=== PATIENT | female | born 1975 | race Asian ===

== ENCOUNTER 2018-05-03 10:42 | Inpatient (IN) | payer OTHER ==
[~2018-05-03] VITALS: Ht 152.4 cm; Wt 62.3 kg
[~2018-05-03 10:42] MED LIST: FOLIC ACID1 MG PO; GABAPENTIN100 M2 PO; LAC PO; LEVAQUIN750 MG PO; NOR5 PO; RENA-VITE1 TAB PO; ROBCF PO; XAN5 PO
[2018-05-03 10:53] VITALS: Ht 152.4 cm; Wt 62.3 kg
[2018-05-03 11:33] LABS: UA SPECIFIC GRAVITY 1.025 (1.005-1.035); microscopic required? YES; urine erythrocyte 2+ (NEGATIVE)
[2018-05-03 11:37] LABS: BASOPHIL % 0.3 % (0-2); PLATELET COUNT 281 x10^3mcL (130-400)
[2018-05-03 11:53] LABS: ALBUMIN 3.5 g/dL (3.4-5.0); BILIRUBIN TOTAL 0.5 mg/dL (0.20-1.00); CALCIUM 9.5 mg/dL (8.5-10.1); CARBON DIOXIDE 25.9 mmol/L (21-32); TOTAL PROTEIN, SERUM 8.1 g/dL (6.4-8.2)
[2018-05-03 12:17] LABS: CREATININE SERUM 17.9 mg/dL (0.6-1.0); POTASSIUM SERUM 2.6 mmol/L (3.5-5.1)
[2018-05-03 16:10] VITALS: BP 120/81
[2018-05-03 16:34] LABS: MAGNESIUM 2.5 mg/dL (1.8-2.4)
[2018-05-03 16:36] LABS: CHOLESTEROL/HDL RATIO 2.2
[2018-05-03 16:41] LABS: T3 TOTAL 0.79 ng/mL
[2018-05-03 16:44] LABS: FREE T4 0.95 ng/dL (0.76-1.46); FREE THYROXINE INDEX 2.1 ug/dL (1.4-4.5); T4(THYROXINE) 6.1 ug/dL (4.7-13.3)
[2018-05-03 17:37] LABS: PHOSPHOROUS 13.1 mg/dL (2.5-4.9)
[2018-05-03 20:22] VITALS: BP 116/76
[2018-05-04 05:31] LABS: BASOPHIL % 0.6 % (0-2); PLATELET COUNT 214 x10^3mcL (130-400)
[2018-05-04 05:40] VITALS: BP 103/63
[2018-05-04 05:56] LABS: CALCIUM 8.9 mg/dL (8.5-10.1); CARBON DIOXIDE 20.1 mmol/L (21-32); MAGNESIUM 2.3 mg/dL (1.8-2.4); POTASSIUM SERUM 3.2 mmol/L (3.5-5.1)
[2018-05-04 06:00] LABS: CREATININE SERUM 19.2 mg/dL (0.6-1.0)
[2018-05-04 07:19] LABS: RED CELL DISTRIBUTION WIDTH 15.8 % (11.5-14.5)
[2018-05-04 08:33] VITALS: BP 116/78
[2018-05-04 13:27] VITALS: BP 126/77
[2018-05-04 17:21] VITALS: BP 118/75
[2018-05-04 20:13] VITALS: BP 117/80
[2018-05-05 05:05] VITALS: BP 116/63
[2018-05-05 07:06] LABS: CALCIUM 8.9 mg/dL (8.5-10.1); CARBON DIOXIDE 20.5 mmol/L (21-32); POTASSIUM SERUM 3.4 mmol/L (3.5-5.1)
[2018-05-05 07:11] LABS: BASOPHIL % 0.7 % (0-2); PLATELET COUNT 238 x10^3mcL (130-400)
[2018-05-05 07:18] LABS: CREATININE SERUM 18.9 mg/dL (0.6-1.0)
[2018-05-05 07:27] LABS: RED CELL DISTRIBUTION WIDTH 14.9 % (11.5-14.5)
[2018-05-05 07:48] LABS: PHOSPHOROUS 10.5 mg/dL (2.5-4.9)
[2018-05-05 08:54] VITALS: BP 131/88
[2018-05-05] MEDS ORDERED: FOSRENOL1000 MG PO (13:03)
[2018-05-05] MEDS ORDERED: RENVELA800 M1 PO (13:04)
[2018-05-05] MEDS ORDERED: APAP/HYDROCODON1 T13 PO (13:31)
[2018-05-06 10:12] LABS: APPEARANCE FLUID CLEAR; COLOR FLUID COLORLESS; RBC FLUID 6 /cumm; SOURCE FLUID PARCENTESIS; WBC FLUID 31 /cumm
[2018-05-06 10:13] LABS: LYMPHOCYTE FLUID 13 %; MONOCYTE FLUID 28 %
== END 2018-05-05 17:21 | disposition home or self-care (01) | DRG 760 ==
LOC: ED 10:42 → DU 14:43 → MU 05-04 21:36
PROVIDERS: Internal Medicine; Internal Medicine Nephrology; Specialist
DX: N83.201 Unspecified ovarian cyst, right side (principal); N18.6 End stage renal disease; N17.0 Acute kidney failure with tubular necrosis; I12.0 Hypertensive chronic kidney disease with stage 5 chronic kidney disease or end stage renal disease; D39.0 Neoplasm of uncertain behavior of uterus; E87.6 Hypokalemia; E83.39 Other disorders of phosphorus metabolism; Z99.2 Dependence on renal dialysis; E83.41 Hypermagnesemia
CPT/HCPCS: 84439; J2270; J2765; J3010; J3480; J7030; Q0092; Q0163

== ENCOUNTER 2019-03-24 18:24 | Emergency (ER) | payer OTHER ==
[~2019-03-24] VITALS: Ht 160 cm; Wt 70.3 kg
[~2019-03-24 18:24] MED LIST changes: +APAP/HYDROCODON1 T13 PO; +FOSRENOL1000 MG PO; +RENVELA800 M1 PO
[2019-03-24 18:29] VITALS: Ht 160 cm; Wt 70.3 kg
[2019-03-24 18:52] LABS: BASOPHIL % 0.4 % (0-2); PLATELET COUNT 271 x10^3mcL (130-400); RED CELL DISTRIBUTION WIDTH 13.6 % (11.5-14.5)
[2019-03-24 19:03] LABS: BILIRUBIN TOTAL 0.3 mg/dL (0.20-1.00); CALCIUM 7.5 mg/dL (8.5-10.1); CARBON DIOXIDE 30.3 mmol/L (21-32); POTASSIUM SERUM 3.3 mmol/L (3.5-5.1); TOTAL PROTEIN, SERUM 6.5 g/dL (6.4-8.2)
[2019-03-24 19:04] LABS: ALBUMIN 2.6 g/dL (3.4-5.0)
[2019-03-24 19:07] LABS: CREATININE SERUM 12.9 mg/dL (0.6-1.0)
[2019-03-24 22:44] VITALS: BP 113/74
== END 2019-03-24 22:30 | disposition home or self-care (01) ==
LOC: ED 18:24
DX: K85.90 Acute pancreatitis without necrosis or infection, unspecified (principal); T80.90XA Unspecified complication following infusion and therapeutic injection, initial encounter; I12.0 Hypertensive chronic kidney disease with stage 5 chronic kidney disease or end stage renal disease; N18.6 End stage renal disease; Z99.2 Dependence on renal dialysis; Z88.5 Allergy status to narcotic agent; Z88.8 Allergy status to other drugs, medicaments and biological substances; Z88.1 Allergy status to other antibiotic agents; Z98.890 Other specified postprocedural states
CPT/HCPCS: 36415; Q0162

== ENCOUNTER 2019-04-24 12:37 | Inpatient (IN) | payer OTHER ==
[~2019-04-24] VITALS: Ht 154.9 cm; Wt 75.3 kg
[2019-04-24 12:40] VITALS: Ht 154.9 cm; Wt 75.3 kg
--- NOTE | 2019-04-24 13:34 | NUR ---
PT STARTED WITH N/V/D THIS AM 0300 WITH MULTIPLE EPISODES. ABD SOFT AND ROUND AND TENDER TO PALP WITHOUT PALP MASSES PRESENT. PAIN 10/10. NO VOMITING NOTED UPON ARRIVAL. PT IS ALERT AND ORIENTED WITH VSS AND NO DISTRESS NOTED. PT IS ON PERITONEAL DIALYSIS AND HAS OLD ACCESS AREAS ON BILATERAL UPPER ARMS. ATTEMPTED IV SL START WITHOUT SUCCESS X2. WILL NOTIFY CHARGE NURSE. PT IS AWAITING MD SANTIAGO
[2019-04-24 14:48] LABS: BASOPHIL % 0.7 % (0-2); PLATELET COUNT 246 x10^3mcL (130-400); RED CELL DISTRIBUTION WIDTH 13.4 % (11.5-14.5)
[2019-04-24 14:56] LABS: BILIRUBIN TOTAL 0.5 mg/dL (0.20-1.00); CALCIUM 7.6 mg/dL (8.5-10.1); CARBON DIOXIDE 26.1 mmol/L (21-32); POTASSIUM SERUM 3.7 mmol/L (3.5-5.1); TOTAL PROTEIN, SERUM 7.3 g/dL (6.4-8.2)
--- NOTE | 2019-04-24 14:57 | NUR ---
PT BACK FROM XRAY.
[2019-04-24 14:58] LABS: ALBUMIN 2.7 g/dL (3.4-5.0); CREATININE SERUM 12.2 mg/dL (0.6-1.0)
--- NOTE | 2019-04-24 15:31 | NUR ---
PT UNABLE TO PROVIDE URINE AT THIS TIME, STATES SHE PRODUCES VERY LITTLE, ONLY IN AM AND AT NOC.
[2019-04-24] MEDS ORDERED: TOPROL XL25 MG PO (16:04)
--- NOTE | 2019-04-24 16:04 | NUR ---
PT TRANSFRERED TO FLOOR WITH TOMEKA LISA, PT STABLE FOR TRANSFER. VSS. [facility] WITH PT.
[2019-04-24] MEDS ORDERED: HYDRALAZINE HCL25 MG PO (16:05)
--- NOTE | 2019-04-24 16:20 | NUR ---
RECEIVED PT FROM ED VIA GUERNEY, BEDSIDE REPORT RECEIVED FROM TRANSPORTING ER NURSE. PT CAME IN DUE TO ABDOMINAL PAIN AND DIARRHEA X1 DAY. AAOX4. DENIES HEADACHE/DIZZINESS. NO SOB NOTED, LUNG SOUNDS CTA. DENIES CHEST PAIN/PRESSURE. C/O 10/10 ACHING ABDOMINAL PAIN AND NAUSEA. STATED THAT SHE HAD ABOUT X10 EPISODES OF DIARRHEA AND X3 EPISODES OF VOMITING TODAY. OLIGURIC, HAS PERITONEAL DIALYSIS CATHETER ON THE ABDOMEN. W/ OLD AV SHUNTS ON BUE, NON-FUNCTIONING. INSTRUCTED PT THAT URINE AND STOOL SAMPLES NEED TO BE COLLECTED, PT VERBALIZES UNDERSTANDING. IV SITE ON THE RFA GAUGE 22 IS PATENT AND INTACT. SIDE RAILS UPX2. CALL LIGHT ON REACH. WILL CONT TO MONITOR.
--- NOTE | 2019-04-24 16:30 | NUR ---
RYLEY IS PAGED TO MADE AWARE THAT PT IS C/O 06/11 ACHING ABDOMINAL PAIN AND NAUSEA. PT STATED THAT NORCO DOES NOT WORK FOR HER, WAITING FOR CALLBACK.
[2019-04-24 16:41] VITALS: BP 156/100
--- NOTE | 2019-04-24 17:03 | NUR ---
DR. THAKKAR AT BEDSIDE AND WAS MADE AWARE OF PT'S C/O 10/[address] THAKKAR ASSESSED THE PT AND INFORMED OF THE PLAN OF CARE. PT VERBALIZES UNDERSTANDING
--- NOTE | 2019-04-24 17:07 | NUR ---
LIRA FROM DIALYSIS MADE AWARE THAT PT HAS AN ORDER FOR PERITONEAL DIALYSIS TODAY, PER LIRA SHE WILL BE IN THE [facility]
--- NOTE | 2019-04-24 17:27 | NUR ---
MASOOD HEDRICK MADE AWARE THAT PT C/O 10/10 ACHING ABDOMINAL PAIN, WAITING FOR ORDERS.
--- NOTE | 2019-04-24 17:48 | NUR ---
DR. THAKKAR IS PAGED REGARDING ORDERED LANSOPRAZOLE PENDING PHARMACY VERIFICATION AT THIS TIME
--- NOTE | 2019-04-24 19:05 | NUR ---
CARE ASSUMED FROM OUTGOING RN. PT RESTING COMFORTABLY IN BED. FAMILY AT BEDSIDE. NO ACUTE DISTRESS NOTED. EVEN AND UNLABORED RESPIRATIONS ON RA. MEDSURG PT. IVL INTACT. C/O HEADACHE AND ABD PAIN, DAY SHIFT RN WILL MEDICATE WITH NORCO. PERITONEAL DIALYSIS PORT, CDI, SCHEDULED FOR PD TONIGHT, PT AWARE. BED IN LOWEST POSITION. SIDE RAILS UPX2. CALL LIGHT WITHIN REACH. WILL CONTINUE TO MONITOR.
--- NOTE | 2019-04-24 19:09 | NUR ---
BEDSIDE REPORT GIVEN TO MARU FOR CONTINUITY OF CARE
[2019-04-24 20:00] LABS: microscopic required? YES; urine erythrocyte TRACE (NEGATIVE)
[2019-04-24 20:19] LABS: AMPHETAMINE QUAL UR NONE DETECTED (See below)
[2019-04-24 20:55] VITALS: BP 106/65
--- NOTE | 2019-04-24 22:10 | NUR ---
OVERHEAD IRRIGATOR AT BEDSIDE TO PERFORM PERITONEAL DIALYSIS. MOVED PT TO FROM 234B TO 234A. WILL CONTINUE TO MONITOR.
--- NOTE | 2019-04-24 23:00 | NUR ---
PERITONEAL DIALYSIS STARTED. PERITONEAL DRESSING CHANGED BY DEMAND MANAGER, TALAT. PT C/O OF ABD PAIN MEDICATED PER EMAR. C/O ITCHINESS, WILL NOTIFY DRMaxwell WILL CONTINUE TO MONITOR.
--- NOTE | 2019-04-25 00:17 | NUR ---
PT RESTING COMFORTABLY IN BED. PERITONEAL DIALYSIS ONGOING. C/O ITCHINESS MEDICATED PER EMAR. IV INFILTRATED TO RFA, DC'ED, CATHETER INTACT, PRESSURE APPLIED, NO BLEEDING NOTED. INSERTED IV TO LFA, GOOD BLOOD RETURN FLUSHING WELL, SALINE LOCKED. BED IN LOWEST POSITION. SIDE RAILS UPX2. CALL LIGHT WITHIN REACH. WILL CONTINUE TO MONITOR.
[2019-04-25 05:11] VITALS: BP 97/64
--- NOTE | 2019-04-25 06:51 | NUR ---
PT SLEPT COMFORTABLY IN INTERVALS THROUGHOUT THE SHIFT. ALL NEEDS TENDED TO AND MET. ALL SCHEDULED MEDICATIONS GIVEN. PERITONEAL DIALYSIS ONGOING, DRESSING CDI. C/O HEADACHE, ABD PAIN AND ITCHINESS MEDICATED PER EMAR. BED IN LOWEST POSITION. SIDE RAILS UPX2. CALL LIGHT WITHIN REACH. WILL ENDORSE TO ONCOMING SHIFT.
[2019-04-25 06:59] LABS: BASOPHIL % 0.4 % (0-2); PLATELET COUNT 228 x10^3mcL (130-400); RED CELL DISTRIBUTION WIDTH 13.3 % (11.5-14.5)
[2019-04-25 07:02] LABS: CALCIUM 7.2 mg/dL (8.5-10.1); CARBON DIOXIDE 25.6 mmol/L (21-32); POTASSIUM SERUM 3.8 mmol/L (3.5-5.1)
[2019-04-25 07:07] LABS: CREATININE SERUM 12.3 mg/dL (0.6-1.0)
--- NOTE | 2019-04-25 07:30 | NUR ---
PT ENDORSE TO ME THIS MORNING, SITTING UP IN BED. AA/O X4. BREATHING EVEN AND UNLABORED ON RA, NO ACUTE RESP DISTRESS OR SOB NOTED. MEDSURG/ DENIES ANY CP OR PRESSURE. JUST COMPLETED PERITONEAL DIALYSIS AT BEDSIDE. BOWEL SOUNDS ACTIVE IN ALL FOUR QUADS, PER PT LAST BM 04/24 LOOSE NOTED. OLIGURIC. MEDICATED PER EMAR FOR ABD PAIN. IV TO THE LFA INTACT AND PATETN, NO REDNESS OR SWELLING NOTED. CALL LIGHT IN REACH. BED IN LOW POSITION. WILL CONTINUE PLAN OF CARE.
[2019-04-25 08:46] VITALS: BP 108/57
--- NOTE | 2019-04-25 08:50 | NUR ---
PT C/O OF ITCHING, MEDICATED PER EMAR. FISHING ROD MECHANIC MADE AWARE.
--- NOTE | 2019-04-25 11:18 | NUR ---
PT CONTINUES TO C/O OF ABD PAIN, MEDICATED PER EMAR FOR 10/10 PAIN. WILL CONTINUE TO MONITOR.
--- NOTE | 2019-04-25 14:33 | NUR ---
PT C/O OF ITCHINESS TO BODY, MEDICATED PER EMAR. WILL CONTINUE TO MONITOR.
[2019-04-25 16:07] VITALS: BP 100/62
--- NOTE | 2019-04-25 19:20 | NUR ---
CARE ASSUMED FROM OUTGOING RN. PT RESTING COMFORTABLY IN BED. NO ACUTE DISTRESS NOTED. PERITONEAL DIALYSIS ONGOING. PERITONEAL FLUID NEEDED FOR CULTURE, PT AWARE AND WILL NOTIFY WHEN FLUID IS DRAINING. EVEN AND UNLABORED RESPIRATIONS ON RA. MEDSURG PT. IVL INTACT. C/O ABD PAIN, WILL MEDICATE PRN PER EMAR. BED IN LOWEST POSITION. SIDE RAILS UPX2. CALL LIGHT WITHIN REACH. WILL CONTINUE TO MONITOR.
--- NOTE | 2019-04-25 19:32 | NUR ---
NO ACUTE CHANGES AT THIS TIME. NO ACUTE RESP DISTRESS OR SOB NOTED/ PT CURRENTLY REC PERITONEAL DIALYSIS. MEDICATED PER EMAR FOR ABD PAIN. WILL ENDORSE TO INCOMING RN.
[2019-04-25 19:49] VITALS: BP 104/72
--- NOTE | 2019-04-26 00:10 | NUR ---
PO ANTIBIOTIC GIVEN PER EMAR. C/O 04/11 ABD PAIN MEDICATED PER EMAR. PT RESTING COMFORTABLY IN BED. IV PATENT AND INTACT. BED IN LOWEST POSITION. SIDE RAILS UPX2. CALL LIGHT WITHIN REACH. WILL REASSESS FOR PAIN AND CONTINUE TO MONITOR.
[2019-04-26 04:15] VITALS: BP 95/53
[2019-04-26 06:34] LABS: BASOPHIL % 0.4 % (0-2); PLATELET COUNT 224 x10^3mcL (130-400); RED CELL DISTRIBUTION WIDTH 13.1 % (11.5-14.5)
[2019-04-26 06:59] LABS: CALCIUM 7.2 mg/dL (8.5-10.1); CARBON DIOXIDE 26.9 mmol/L (21-32)
[2019-04-26 07:04] LABS: CREATININE SERUM 12.6 mg/dL (0.6-1.0)
--- NOTE | 2019-04-26 07:04 | NUR ---
PT SLEPT COMFORTABLY IN INTERVALS THROUGHOUT THE SHIFT. ALL NEEDS TENDED TO AND MET. ALL SCHEDULED MEDICATIONS GIVEN. PERITONEAL DIALYSIS COMPLETED THROUGHOUT THE SHIFT, PERITONEAL FLUID SENT TO LAB FOR C/S. C/O ABD PAIN AND ITCHINESS MEDICATED PER EMAR. BED IN LOWEST POSITION. SIDE RAILS UPX2. CALL LIGHT WITHIN REACH. WILL ENDORSE TO ONCOMING SHIFT.
--- NOTE | 2019-04-26 07:29 | NUR ---
PT ENDORSE TO ME THIS MORNING,SITTING UP IN BED RESTING. AA/O X4/ BREATHING EVEN AND UNLABORED ON RA, NO ACUTE RESP DISTRESS OR SOB NOTED .MEDSURG. DENIES ANY CP OR PRESSURE. BOWEL SOUNDS ACTIVE IN ALL FOUR QUADS. DENIES ANY ABD PAIN OR DISCOMFORT AT THIS TIME, MEDICATED PER EMAR. LAST PERITONIAL DIALYSIS 04/25 PM. IV TO THE LFA INTACT AND PATENT/ HEPLOCKED/ NO REDNESS OR SWELLING NOTED. WILL CONTINUE TO MONITOR.
[2019-04-26 08:35] LABS: MAGNESIUM 2.2 mg/dL (1.8-2.4); PHOSPHOROUS 6.2 mg/dL (2.5-4.9)
[2019-04-26 08:38] VITALS: BP 103/62
--- NOTE | 2019-04-26 10:28 | NUR ---
PT C/O OF ITCHINESS MEDICATED PER EMAR. WILL CONTINE TO MONITOR.
[2019-04-26 17:04] VITALS: BP 101/62
--- NOTE | 2019-04-26 19:05 | NUR ---
CARE ASSUMED FROM OUTGOING RN. PT RESTING COMFORTABLY IN BED. NO ACUTE DISTRESS NOTED. EVEN AND UNLABORED RESPIRATIONS ON RA. MEDSURG PT. IVL INTACT. PERITONEAL DIALYSIS SCHEDULED FOR TONIGHT. BED IN LOWEST POSITION. SIDE RAILS UPX2. CALL LIGHT WITHIN REACH. WILL CONTINUE TO MONITOR.
[2019-04-26 19:51] VITALS: BP 112/61
--- NOTE | 2019-04-26 20:34 | NUR ---
REMOTE ADVISOR AT BEDSIDE TO START PERITONEAL DIALYSIS. WILL CONTINUE TO MONITOR.
--- NOTE | 2019-04-27 00:01 | NUR ---
PT C/O OF ITCHINESS DUE TO PERITONEAL DIALYSIS ONGOING, MEDICATED PER EMAR. PO ANTIBIOTICS GIVEN. PT TOLERATED WELL. RESTING COMFORTABLY IN BED. EVEN AND UNLABORED RESPRIATIONS ON RA. BED IN LOWEST POSITION. SIDE RAILS UPX2. CALL LIGHT WITHIN REACH. WILL CONTINUE TO MONITOR.
[2019-04-27 06:09] LABS: BASOPHIL % 0.4 % (0-2); PLATELET COUNT 238 x10^3mcL (130-400)
[2019-04-27 06:28] LABS: CALCIUM 7.7 mg/dL (8.5-10.1); CARBON DIOXIDE 23.3 mmol/L (21-32); POTASSIUM SERUM 3.6 mmol/L (3.5-5.1)
--- NOTE | 2019-04-27 06:46 | NUR ---
PT SLEPT COMFORTABLY IN INTERVALS THROUGHOUT THE SHIFT. ALL NEEDS TENDED TO AND MET. ALL SCHEDULED MEDICATIONS GIVEN. C/O PAIN AND ITCHINESS MEDICATED PER EMAR. PERITONEAL DIALYSIS COMPLETED LAST NIGHT. IVL PATENT AND INTACT. BED IN LOWEST POSITION. SIDE RAILS UPX2. CALL LIGHT WITHIN REACH. WILL ENDORSE TO ONCOMING SHIFT.
--- NOTE | 2019-04-27 06:50 | NUR ---
RECEIVED CRITICAL LAB RESULTS: BUN/CREAT: 62.0/13.0. PAGED AND PAGEGATED WILL ENDORSE TO ONCOMING SHIFT.
[2019-04-27 08:33] VITALS: BP 108/73
--- NOTE | 2019-04-27 10:45 | NUR ---
PATIENT COMPLAINED OF SUDDEN ONSET CHEST PAIN (PRESSURE "LIKE SOMETHING IS SITTING ON TOP OF MY CHEST") 8/10 RADIATING FROM NECK TO CHEST TO BACK. VITALS TAKEN, NORMAL RANGE. DIAMOND CUTTER BRYAN MADE AWARE, STAT EKG AND TROP ORDERED AND TRANSFERRED TO TELE. TELE 29 PLACED ON PATIENT, READING SR. EKG AND TROP DRAW DONE. MORPHINE GIVEN. WILL CONTINUE TO MONITOR.
--- NOTE | 2019-04-27 11:25 | NUR ---
PATIENT C/O PERSISTENT CHEST PAIN 8/10, NITRO SL GIVEN. WILL CONT TO MONITOR.
[2019-04-27 11:33] VITALS: BP 116/80
--- NOTE | 2019-04-27 13:45 | NUR ---
PATIENT STATES NITRO HELPED FOR ALITTLE BIT BUT CHEST PAIN BACK AT 8/10 AND PERSISTENT. BRYAN MADE AWARE OF EKG RESULT SR AND TROP 0.022, PER HEAD ANIMAL TRAINER OKAY TO GIVE NITRO SL AGAIN, GIVEN. PATIENT C/O HEADACHE FROM NITRO, NORCO OFFERED AND GIVEN. PATIENT ALSO REQUESTED FOR BENEDRYL, GIVEN. WILL CONT TO MONITOR.
[2019-04-27 16:46] VITALS: BP 105/74
--- NOTE | 2019-04-27 19:24 | NUR ---
BEDSIDE REPORT GIVEN TO [facility] NURSE ANUP TO CONTINUE CARE. PERITONIAL DIALYSIS ORDER IN PLACE AND VERIFIED WITH LIRA TO INIITATE TONIGHT. PATIENT STATES CHEST PAIN PRESENT, CONTANT BUT INTENSITY VARIES THROUGHOUT DAY. PAIN MEDS NOT DUE AT THIS TIME, PATIENT VERBALIZED UNDERSTANDING. PATIENT W/ NO ACUTE DISTRESS AT THIS TIME AND NO OTHER SIGNFICANT CHANGE IN CONDITION. CALL LIGHT WITHIN REACH.
--- NOTE | 2019-04-27 19:50 | NUR ---
PT. AWAKE, ALERT, ORIENTED X4. DENIES HEADACHE OR DIZZINESS. BREATH SOUNDS CLEAR THROUGHOUT LUNG WALKER, RESP. EVEN, UNLABORED. NO SOB NOTED. PT. ON RA. ABD. SOFT AND ROUND, BOWEL SOUNDS ACTIVE. PT. C/O ABD. PAIN. DENIES NAUSEA. PERITONEAL PORT TO LT. ABD W/ DRSG CDI. PEDAL PULSES STRONG TO BLE. NO EDEMA NOTED. IV HEPLOCKED, FLUSHING WELL, SITE INTACT. CALL LIGHT WITHIN REACH.
[2019-04-27 20:40] VITALS: BP 109/69
--- NOTE | 2019-04-27 20:45 | NUR ---
PT. C/O ABD. PAIN, PRN NORCO GIVEN ORDERED. WILL MONITOR. PERITONEAL DIALYSIS INITIATED BY TOMEKA LIRA. CALL LIGHT WITHIN REACH.
--- NOTE | 2019-04-27 23:58 | NUR ---
PT. C/O ABD. PAIN, 05/12. PRN MORPHINE GIVEN ORDERED. WILL MONITOR.
--- NOTE | 2019-04-28 03:01 | NUR ---
PT. MOSTLY AWAKE, STATED THAT SHE NEVER SLEEPS. C/O ITCHING HER PERITONEAL DIALYSIS CONTINUES. PRN BENADRYL PO, GIVEN ORDERED. NO C/O PAIN AT THIS TIME. WILL CONTINUE TO MONITOR.
[2019-04-28 05:06] VITALS: BP 100/64
--- NOTE | 2019-04-28 06:32 | NUR ---
PT. C/O ABD. GLENN, PAIN LEVEL 9/10. PRN MORPHINE GIVEN ORDERED. IV ANTIBIOTIC INFUSING. PERITONEAL DIALYSIS ALMOST COMPLETED. CALL LIGHT WITHIN REACH. WILL ENDORSE PT. CARE TO INCOMING NURSE
[2019-04-28 06:38] LABS: BASOPHIL % 0.3 % (0-2); PLATELET COUNT 222 x10^3mcL (130-400)
[2019-04-28 06:40] LABS: CALCIUM 7.8 mg/dL (8.5-10.1); CARBON DIOXIDE 22.7 mmol/L (21-32); POTASSIUM SERUM 3.4 mmol/L (3.5-5.1)
[2019-04-28 06:45] LABS: CREATININE SERUM 13.3 mg/dL (0.6-1.0)
--- NOTE | 2019-04-28 07:10 | NUR ---
RECEIVED REPORT FROM ANUP RN, PT IN BED W/ NO ACUTE DISTRESS
--- NOTE | 2019-04-28 07:47 | NUR ---
PT SLEEPING IN BED, IN NO APPARENT DISTRESS, PERINEAL DIALYSIS ON GOING, NO ASE NOTED AT THIS TIME, IV PATENT AND NO INFILTRATION NOTED, PALP PULSES, CAP REFILL < 3S, TELE # [id number], NSR, RA, RESP EVEN, NO SOB/COUGH, BS ACTIVE X 4, SKIN D/W/C, ALL NEEDS ADDRESSED AT THIS TIME, SAFETY PROTOCOL FOLLOWED, CONTINUE TO MONITOR
--- NOTE | 2019-04-28 08:40 | NUR ---
PT REPORTED MODERATE ABD DISCOMFORT, 7/10, LOCAL, DULL, GENERLAIZED BODY ITCHING, NORCO 7.5/325MG X 1 TAB, BENADRYL 25MG X 1 TAB GIVEN PER MD PRN ORDER, TAKEN WELL, NO ASE NOTED AT THIS TIME, CONTINUE TO MONITOR
--- NOTE | 2019-04-28 10:15 | NUR ---
PT IN BED, IN NO ACUTE DISTRESS, AM MED GIVEN PER MD ORDER VIA EMAR, TAKEN WELL, NO ASE NOTED AT THIS TIME, SAFETY MONITOR, CONTINUE TO MONITOR
[2019-04-28] MEDS ORDERED: FLA250 PO (11:46)
[2019-04-28 11:56] VITALS: BP 102/60
[2019-04-28 12:08] VITALS: BP 100/64
--- NOTE | 2019-04-28 14:13 | NUR ---
DC PAPER SIGNED AND KEPT IN CHART, PT AWARE OF NEW PRESCRIPTION OF FLAGYL IN DC PACKET, QUESTION ASKED AND ANSWERED, NO FURTHER CONCERN NEEDED WHEN ASKED, PT AWARE IT'S HER RESPONSIBILITY TO F/U W/ CERTIFIED MEDICAL DOSIMETRIST [place] AND PCP, VERBALLY UNDERSTANDING, PT SAID DAUGHTER WILL P/U AT 4PM TO HOME
--- NOTE | 2019-04-28 15:08 | NUR ---
IV REMOVED, IV CATH TIP INTACT, NO ACTIVE BLEEDING NOTED, PT IN NO ACUTE DISTRESS
--- NOTE | 2019-04-28 15:44 | NUR ---
TELE #[id number] REMOVED AND RETURNED TO [facility]
--- NOTE | 2019-04-28 17:38 | NUR ---
AT BEDSIDE, PT HAD DINNER, PT WAS ASSISTED BY NURSING STAFFS TO LOBBY VIA WC, PT WENT HOME W/
== END 2019-04-28 17:48 | disposition home or self-care (01) | DRG 371 ==
LOC: ED 12:37 → MU 15:11 → DU 15:11 → MU 16:20 → DU 04-27 10:33
PROVIDERS: Emergency Medicine; Internal Medicine Nephrology; ADMIT General Practice
DX: K65.9 Peritonitis, unspecified (principal); N18.6 End stage renal disease; I12.0 Hypertensive chronic kidney disease with stage 5 chronic kidney disease or end stage renal disease; D63.1 Anemia in chronic kidney disease; E83.39 Other disorders of phosphorus metabolism; Z99.2 Dependence on renal dialysis; Z68.30 Body mass index [BMI] 30.0-30.9, adult
CPT/HCPCS: G0378; J1200; J2270; J2405; J2543; J2550; J3490; J7050; Q0163